=== PATIENT | female | born 1980 | race Caucasian/White ===

== ENCOUNTER 2020-03-31 11:13 | Emergency (ER) | payer SELFPAY ==
[~2020-03-31] VITALS: Ht 170.2 cm; Wt 64.0 kg
[~2020-03-31 11:13] MED LIST: DEXT10TA7 PO; LAMO25TA6 PO
[2020-03-31 11:19] VITALS: BP 119/61
--- NOTE | 2020-03-31 11:30 | NUR ---
Pt here for aderal and lamictal prescription.
== END 2020-03-31 11:59 | disposition home or self-care (01) ==
LOC: ED 11:40
DX: F31.71 Bipolar disorder, in partial remission, most recent episode hypomanic (principal); F90.0 Attention-deficit hyperactivity disorder, predominantly inattentive type; F90.1 Attention-deficit hyperactivity disorder, predominantly hyperactive type; Z76.0 Encounter for issue of repeat prescription
CPT/HCPCS: 99281